=== PATIENT | male | born 1980 | race Caucasian/White ===

== ENCOUNTER 2018-04-20 19:00 | Emergency (ER) | payer OTHER ==
--- NOTE | 2018-04-20 22:13 | ED Physician Documentation ---
PD HPI OPHTHO - Stated complaint Stated Complaint: RED EYE - Chief complaint Chief Complaint: Heent - History obtained from History obtained from: Patient - History of Present Illness Timing - onset: How many days ago (2) Timing - details: Gradual onset Location: Right Quality / character: Itching, Burning Associated symptoms: FB sensation Contributing factors: No: Recent URI, Wears glasses, Wears contacts Similar symptoms before: Other (had left eye redness last week while in [place], seen at [facility] and was told it was some form of allergic conjunctivitis related to the climate, given rx for olopatadine. however, while the left eye has returned to normal, his right eye now has same symptoms (and this started after returning from [facility])) Recently seen: Clinic Review of Systems Constitutional: reports: Reviewed and negative Eyes: reports: Irritation. denies: Loss of vision, Decreased vision, Photophobia, Discharge PD PAST MEDICAL HISTORY - Past Medical History Past Medical History: No Cardiovascular: None Respiratory: None Neuro: None Endocrine/Autoimmune: None GI: None : None HEENT: None Psych: None Musculoskeletal: None Derm: None Other Past Medical History: BILAT EYE SURGERY ... - Past Surgical History Past Surgical History: Yes General: Other - Present Medications Home Medications: Ambulatory Orders Medication Instructions Recorded Confirmed No Known Home Medications 04/20/18 04/20/18 - Allergies Allergies/Adverse Reactions: Allergies Allergy/AdvReac Type Severity Reaction Status Date / Time No Known Drug Allergies Allergy Verified 04/20/18 19:24 - Social History Does the pt smoke?: No Smoking Status: Never smoker Does the pt drink ETOH?: Yes Does the pt have substance abuse?: No - Immunizations Immunizations are current?: Yes - POLST Patient has POLST: No PD ED PE NORMAL - Vitals Vital signs reviewed: Yes - General General: Alert and oriented X 3, No acute distress, Well developed/nourished - HEENT HEENT: PERRL, EOMI, Moist mucous membranes PD ED PE EXPANDED - Eyes Eyes: Right eye, Injected conj/sclera Results - Vitals Vitals: Oxygen O2 Source Room air PD MEDICAL DECISION MAKING - ED course Complexity details: considered differential, d/w patient Departure - Departure Disposition: 01 Home, Self Care Clinical Impression: Conjunctivitis Condition: Good Instructions: ED Conjunctivitis Nonspecific Comments: Use the antibiotic drops as follows: 1 drop in right eye three times per day for 7 days. May stop on day 5 or 6 if the symptoms have completely resolved. Discharge Date/Time: 04/20/18 22:55
[2018-04-20] MEDS ORDERED: PROPARACAINE 0.5% OPHTH DROPS 15 ML RIGHTEYE STA (22:21)
[2018-04-20] MEDS ORDERED: POLYMYXIN B/TRIMETH OPHTH DROPS RIGHTEYE STA (22:39)
[2018-04-20 22:54] VITALS: BP 144/75
== END 2018-04-20 22:55 | disposition home or self-care (01) ==
LOC: ED 19:00
DX: H10.9 Unspecified conjunctivitis (principal)
CPT/HCPCS: 99283; A9270; J3490